=== PATIENT | female | born 1990 | race Hispanic/Latino ===

== ENCOUNTER 2019-11-10 01:10 | Emergency (ER) | payer OTHER ==
[2019-11-10 01:49] LABS: APPEARANCE,URINE Clear (CLEAR); BILIRUBIN,URINE Negative (NEGATIVE); COLOR,URINE Yellow (YELLOW); GLUCOSE, URINE (UA) Negative (NEGATIVE); KETONES,URINE Negative (NEGATIVE); LEUKOCYTE ESTERASE ,URINE Moderate (NEGATIVE); NITRATE,URINE Negative (NEGATIVE); OCCULT BLOOD,URINE Negative (NEGATIVE); PROTEIN,URINE POS 1+ mg/dL (NEGATIVE)
[2019-11-10 01:53] LABS: HCG,QUAL RESULT NEGATIVE (NEGATIVE)
[2019-11-10 02:00] LABS: BACTERIA,URINE Few /HPF (None Seen); RBC,URINE 0-1 /HPF (0-1)
[2019-11-10] MEDS ORDERED: CEPHALEXIN 500 MG CAPSULE ONE (02:48)
[2019-11-10] MEDS ORDERED: PHENAZOPYRIDINE HCL 200 MG TABLET ONE (02:49)
[2019-11-10] MEDS ORDERED: DICYCLOMINE HCL 20 MG TAB ONE (02:49)
== END 2019-11-10 02:41 | disposition home or self-care (01) ==
LOC: EDH 01:10
DX: N39.0 Urinary tract infection, site not specified (principal); J45.909 Unspecified asthma, uncomplicated
CPT/HCPCS: 81001; 81025

== ENCOUNTER 2019-11-26 23:59 | Emergency (ER) | payer SELFPAY ==
[2019-11-27] MEDS ORDERED: ALBUTEROL SULFATE 0.083% 2.5 MG/3 ML INH IH ONE (00:16)
[2019-11-27] MEDS ORDERED: ONDANSETRON HCL 4 MG/2 ML VIAL ONE (00:17)
[2019-11-27] MEDS ORDERED: METHYLPREDNISOLONE SOD SUCC 125MG/2ML VIAL ONE (00:18)
[2019-11-27 00:21] LABS: CREATININE 0.7 mg/dL (0.5-1.5); POTASSIUM 3.4 mmol/L (3.5-5.1)
[2019-11-27 00:26] LABS: ALBUMIN 4.5 g/dL (3.5-5.0); BILIRUBIN,TOTAL 0.3 mg/dL (0.2-1.0); TOTAL PROTEIN, SERUM 8.6 g/dL (6.0-8.3)
[2019-11-27 00:52] LABS: BASOPHILS % (AUTO) 0.6 % (0.0-5.0); EOSINOPHILS % (AUTO) 7.7 % (0.0-8.0); LYMPHOCYTES % (AUTO) 29.8 % (21.0-51.0); MEAN CORPUSCULAR HEMOGLOBIN 28.9 pg (27.0-33.0); MEAN CORPUSCULAR HGB CONC 32.9 g/dL (32.0-36.0); MEAN CORPUSCULAR VOLUME 87.8 fL (79-99); MONOCYTES % (AUTO) 5.3 % (3.0-13.0); NEUTROPHILS % (AUTO) 56.4 % (40.0-77.0); PLATELET COUNT (AUTO) 282 K/uL (130-400); RED BLOOD CELL COUNT(AUTO) 4.33 MIL/uL (4.00-5.50); RED CELL DISTRIBUTION WIDTH 11.9 % (11.0-15.5); WHITE BLOOD COUNT (AUTO) 8.8 K/uL (4.8-10.8)
[2019-11-27 01:27] LABS: ABG HCO3 21.1 mmol/L (21.0-28.0); ABG OXYGEN SATURATION 97.6 % (95.0-99.0); ABG PCO2 35 mmHg (32-45)
[2019-11-27 02:05] LABS: APPEARANCE,URINE Clear (CLEAR); BILIRUBIN,URINE Negative (NEGATIVE); COLOR,URINE Yellow (YELLOW); GLUCOSE, URINE (UA) Negative (NEGATIVE); HCG,QUAL RESULT NEGATIVE (NEGATIVE); KETONES,URINE Negative (NEGATIVE); LEUKOCYTE ESTERASE ,URINE Negative (NEGATIVE); NITRATE,URINE Negative (NEGATIVE); OCCULT BLOOD,URINE Large (NEGATIVE); PH,URINE 5.5 (5.0-8.0); PROTEIN,URINE Trace mg/dL (NEGATIVE)
[2019-11-27 02:15] LABS: BACTERIA,URINE Few /HPF (None Seen); MUCUS,URINE Rare LPF (None Seen)
== END 2019-11-27 02:51 | disposition home or self-care (01) ==
LOC: EDH 23:59
DX: J45.31 Mild persistent asthma with (acute) exacerbation (principal)
CPT/HCPCS: 36415; 36600; 71045; 80053; 81001; 81025; 82550; 82803; 85025; 87804 ×2; 94640 ×3; 96374; 96375; 99285; J2405; J2930

== ENCOUNTER 2020-01-01 08:50 | Emergency (ER) | payer OTHER ==
[2020-01-01] MEDS ORDERED: IPRATROPIUM/ALBUTEROL SULFATE 3 ML SOLUTION IH ONE ×2 (09:01→09:03)
[2020-01-01] MEDS ORDERED: CEFTRIAXONE SODIUM 1 GM ONE (09:48)
[2020-01-01] MEDS ORDERED: DEXAMETHASONE SOD PHOSPHATE 4 MG/ML 1ML VIAL ONE (09:48)
[2020-01-01] MEDS ORDERED: SODIUM CHLORIDE 0.9% 1000ML 1,000 ML IV ONE (09:48)
== END 2020-01-01 12:02 | disposition home or self-care (01) ==
LOC: EDH 08:50
DX: O99.511 Diseases of the respiratory system complicating pregnancy, first trimester (principal); J45.901 Unspecified asthma with (acute) exacerbation; Z79.899 Other long term (current) drug therapy; Z3A.01 Less than 8 weeks gestation of pregnancy
CPT/HCPCS: 71045; 81025; 87804 ×2; 94640 ×2; 96374; 96375; 99284; J0696; J1100; J7030